=== PATIENT | female | born 2000 | race Caucasian/White ===

== ENCOUNTER 2023-11-03 08:45 | Emergency (ER) | payer OTHER, SELFPAY ==
[2023-11-03 08:48] VITALS: BP 111/67
--- NOTE | 2023-11-03 09:06 | ED.GENMED ---
History of Present Illness
<Maia Owen PA-C - Last Filed: 11/03/23 12:31>
General
Chief Complaint: Urinary Symptoms
Source: patient
Exam Limitations: none
Time Seen by Provider: 11/03/23 09:06
Nursing documentation reviewed up to this point in time: agreed with
History of Present Illness
History of Present Illness:
This is a 22 y/o female no past medical history presenting emergency department today with concerns of urinary burning, frequency, and urgency. Patient has had the symptoms for past 2 days. Patient reports that this feels like UTI she has had in
the past. However, last night she started develop bilateral flank pain, hematuria and says she is never had that with a UTI before and so she decided to report to emergency department for further evaluation. Patient has had no nausea or vomiting,
has had no fevers or chills. Patient denies any urinary incontinence. Patient denies any sick contacts. Patient denies any chance of STDs, STIs. Patient denies any changes to her appetite, notes she has been eating and drinking as normal.
Past History
<Maia Owen PA-C - Last Filed: 11/03/23 12:31>
Social History
Tobacco: Non-smoker
Alcohol: None
Drug: None
Review of Systems
<Maia Owen PA-C - Last Filed: 11/03/23 12:31>
Review of Systems
All Other Systems: ROS reviewed and negative except as documented in HPI and ROS
Phy Exam
<Maia Owen PA-C - Last Filed: 11/03/23 12:31>
Physical Exam
Physical Exam:
General: Patient is well appearing and in no acute distress; non-toxic
Skin: Warm and dry, no rashes or lesions
Head: Normocephalic, atraumatic
Eyes: Sclera non-icteric. EOMs intact.
Cardiac: Regular rate and rhythm, no murmurs
Peripheral Vascular: No lower extremity swelling or edema.
Pulm: Normal respiratory effort, no wheezes, rales, rhonchi
Abdomen: Positive CVA tenderness bilaterally. Mild lower abdominal tenderness bilaterally with no guarding, no rebound tenderness. No palpable masses.
Neuro: CN II-XII intact, no focal neurologic deficits.
Psychiatric: Appropriate mood and affect.
Course
<Maia Owen PA-C - Last Filed: 11/03/23 12:31>
Orders/Labs/Results
Orders:
Orders
11/03/23 08:57
Urinalysis Reflex To Culture Urgent
Date Specimen was Collected: 11/03/23
Time Specimen was Collected: 08:52
Urine Microscopic Reflex Cult Urgent
Urine Culture Urgent
JIM Source: U
Specimen Description:
Date Specimen was Collected: 11/03/23
Time Specimen was Collected: 08:52
11/03/23 09:21
Test Result ONCE
11/03/23 09:22
Ibuprofen [Motrin] 400 mg PO NOW STA
11/03/23 09:25
US Kidneys and US Bladder [US Renal With Bladder] Urgent
Comment:
Reason For Exam: bilateral flank pain
11/03/23 09:42
Test Result ONCE
11/03/23 09:45
Complete Blood Count/With Diff Urgent
Comprehensive Metabolic Panel Urgent
HCG, Serum Qualitative Screen Urgent
11/03/23 11:56
Sulfamethox./Trimethoprim Ds [Bactrim Ds 800 mg/160 mg] 1 tablet PO NOW STA
11/03/23 12:05
CefTRIAXone [Rocephin] 1,000 mg IV NOW STA
11/03/23 12:08
Cefdinir [Omnicef] 300 mg PO NOW STA
Abnormal Lab Results
11/03/23 11/03/23
08:57 09:45
RBC 4.13 L 10^6/uL
(4.20-5.40)
Hct 36.1 L %
(37.0-47.0)
MPV 10.8 H fL
(7.4-10.4)
Absolute Monos (auto) 0.7 H 10^3/uL
(0.1-0.6)
Lymphocytes % 20.4 L %
(20.5-51.1)
Monocytes % 9.8 H %
(1.7-9.3)
Ur Occult Blood Reflex 3+ A
(Negative)
Leukocyte Esterase Rfl 2+ A
(Negative)
Urine RBC >100 A /HPF
(0-2)
Urine WBC (Reflex) 70-80 A /HPF
(0-5)
Urine Bacteria (Reflex) Few A
(Negative)
Urine Albumin (Reflex) 3+ A
(Neg - Trace)
11/03/23 09:45
11/03/23 09:45
Vital Signs
Initial and Last Documented VS:
Initial Vital Signs
Temp Pulse Resp BP Pulse Ox
98.1 F 105 18 111/67 96
11/03/23 08:48 11/03/23 08:48 11/03/23 08:48 11/03/23 08:48 11/03/23 08:48
Last Documented Vital Signs
Temp Pulse Resp BP Pulse Ox
98.1 F 105 18 101/70 96
11/03/23 08:48 11/03/23 08:48 11/03/23 12:10 11/03/23 12:10 11/03/23 08:48
<Jass Martin, DO - Last Filed: 11/03/23 09:53>
Orders/Labs/Results
Orders:
Orders
11/03/23 08:57
Urinalysis Reflex To Culture Urgent
Date Specimen was Collected: 11/03/23
Time Specimen was Collected: 08:52
Urine Microscopic Reflex Cult Urgent
Urine Culture Urgent
JIM Source: U
Specimen Description:
Date Specimen was Collected: 11/03/23
Time Specimen was Collected: 08:52
11/03/23 09:21
Test Result ONCE
11/03/23 09:22
Ibuprofen [Motrin] 400 mg PO NOW STA
11/03/23 09:25
US Kidneys and US Bladder [US Renal With Bladder] Urgent
Comment:
Reason For Exam: bilateral flank pain
11/03/23 09:42
Test Result ONCE
11/03/23 09:45
Complete Blood Count/With Diff Urgent
Comprehensive Metabolic Panel Urgent
HCG, Serum Qualitative Screen Urgent
11/03/23 11:56
Sulfamethox./Trimethoprim Ds [Bactrim Ds 800 mg/160 mg] 1 tablet PO NOW STA
11/03/23 12:05
CefTRIAXone [Rocephin] 1,000 mg IV NOW STA
11/03/23 12:08
Cefdinir [Omnicef] 300 mg PO NOW STA
Abnormal Lab Results
11/03/23 11/03/23
08:57 09:45
RBC 4.13 L 10^6/uL
(4.20-5.40)
Hct 36.1 L %
(37.0-47.0)
MPV 10.8 H fL
(7.4-10.4)
Absolute Monos (auto) 0.7 H 10^3/uL
(0.1-0.6)
Lymphocytes % 20.4 L %
(20.5-51.1)
Monocytes % 9.8 H %
(1.7-9.3)
Ur Occult Blood Reflex 3+ A
(Negative)
Leukocyte Esterase Rfl 2+ A
(Negative)
Urine RBC >100 A /HPF
(0-2)
Urine WBC (Reflex) 70-80 A /HPF
(0-5)
Urine Bacteria (Reflex) Few A
(Negative)
Urine Albumin (Reflex) 3+ A
(Neg - Trace)
11/03/23 09:45
11/03/23 09:45
Vital Signs
Initial and Last Documented VS:
Initial Vital Signs
Temp Pulse Resp BP Pulse Ox
98.1 F 105 18 111/67 96
11/03/23 08:48 11/03/23 08:48 11/03/23 08:48 11/03/23 08:48 11/03/23 08:48
Last Documented Vital Signs
Temp Pulse Resp BP Pulse Ox
98.1 F 105 18 101/70 96
11/03/23 08:48 11/03/23 08:48 11/03/23 12:10 11/03/23 12:10 11/03/23 08:48
Delmylt;Maia Owen PA-C - Last Filed: 11/03/23 12:31>
MDM/Problems Addressed
Differential Diagnosis Includes:
Differentials include acute cystitis, pyelonephritis, nephrolithiasis, hemorrhagic cystitis, interstitial cystitis, loin pain hematuria syndrome
MDM/Problems Addressed:
Flank pain, UTI symptoms:
22-year-old female presents emergency department with concerns of UTI symptoms with abrupt onset of flank pain and hematuria that started last night. Patient is had about nausea or vomiting, fevers or chills. Will check lab work, test,
urinalysis. Will obtain ultrasound to assess for hydronephrosis. Will give ibuprofen for pain and reassess.
10: 26�cbc reviewed, no leukocytosis, test negative.
CMP unremarkable. Urinalysis concerning for UTI. Renal ultrasound negative for hydro. Based on symptoms, positive urinalysis, and flank pain, will treat for Eduardo. Patient given prescription for cefdinir and given 1 dose here in the emergency
department. Return precautions discussed, patient expressed understanding, patient stable for discharge. Case reviewed with my attending Dr. Martin.
Chronic conditions affecting care:
N/A
Acute Exacerbation and/or Progression of Chronic Illness:
N/A
<Maia Owen PA-C - Last Filed: 11/03/23 12:31>
*Pulse Oximetry
Patient hypoxic: no
*Critical Care Note
Total Time (30-74mins, 75-104mins- exclusive of procedures): Not Applicable
Data Reviewed
Review of Other/Old Records Reveals: Records (Reviewed ER physician documentation from 11/28/2017, seen for vasovagal syncope)
Source: patient and records
<Maia Owen PA-C - Last Filed: 11/03/23 12:31>
Patient Management
Social determinants of health affecting care: Strong social support
Escalation/DeEscalation of care consider admission/obs:
Admit not indicated, patient stable for discharge
ED Attending Note
<Maia Owen PA-C - Last Filed: 11/03/23 12:31>
-
Portions of this chart may have been created with voice recognition software.� Occasional wrong word or��sound alike� substitutions may have occurred due to the inherent limitations of voice recognition software.
<Jass Martin DO - Last Filed: 11/03/23 09:53>
ED Attending Note
Patient seen and examined by attending physician: Yes
I performed the substantive portion of visit, reviewed & personally made and approve the management plan that is documented in note by myself or DANAY.: Yes
ED Attending Note:
seen with Pa, agree with a/p
non toxic female
gu symptoms, hematuria
Discharge Plan
Departure
Patient Disposition: Home (Routine Discharge)
Date of Disposition: 11/03/23
Time of Disposition: 12:10
Patient with high blood pressure during this ER visit?: No
Condition: Good
Discharge Problem:
Pyelonephritis
Instructions: Blood in the Urine (Hematuria), Adult (DC), Urinary Tract Infection, Adult ED
Prescriptions:
New
cefdinir 300 mg capsule
300 mg PO BID 10 Days Qty: 20 0RF
No Action
No Meds [No Current Medications]
0
acetaminophen-codeine 10 ML solution
5 ml PO Q4HPRN PRN (Reason: abd pain) Qty: 100 0RF
Referrals:
NONE,* [Family Provider] -
Activity Restrictions/Additional Instructions:
Please return to emergency department should you develop fevers or chills, acute worsening of your pain, nausea or vomiting, chest pain, shortness of breath, any other signs or symptoms concerning to you.
You received 1 dose of cefdinir today. Please take the next dose in the evening. Tomorrow, you can continue taking cefdinir twice daily for remaining 9 days.
Please follow-up with your primary care provider for reassessment in a week.
Interventions
Interventions:
*Risk Screen - Suicide Last Done: 11/03/23 09:45
*General Assessment Last Done: 11/03/23 09:45
*Neglect/Abuse Screening Last Done: 11/03/23 09:45
ED- Fall Risk Assessment Last Done: 11/03/23 12:10
*ED COVID-19 Vaccine History Last Done: 11/03/23 09:45
*Nursing Disposition Last Done: 11/03/23 12:26
ED-Female Genitourinary Assessment Last Done: 11/03/23 09:45
Discharge Date and Time
Discharge Date/Time: 11/03/23 12:27
Print Language: MALAGASY
[2023-11-03 09:18] LABS: Urine Albumin 3+ (Neg - Trace); Urine Bilirubin Negative (Negative); Urine Character Very Cloudy (Clear); Urine Color Red; Urine Glucose Negative (Negative); Urine Ketone Negative (Negative); Urine Leukocyte 2+ (Negative); Urine Nitrite Negative (Negative); Urine Occult Blood 3+ (Negative); Urine Urobilinogen Negative (Neg - 1+)
[2023-11-03] MEDS: MOTRIN 400 MG PO (09:43)
[2023-11-03 09:59] LABS: Urine Red Blood Cell >100 /HPF (0-2); Urine White Cell 70-80 /HPF (0-5)
[2023-11-03 10:00] LABS: Urine Bacteria Few (Negative)
[2023-11-03 10:04] LABS: % Eosinophils 0.6 % (0-6); % Immature Granulocytes 0.4 % (0-0.5); % Lymphocytes 20.4 % (20.5-51.1); % Monocytes 9.8 % (1.7-9.3); % Neutrophils 67.8 % (42.2-75.2); Absolute Basophils 0.1 10^3/uL (0-0.2); Absolute Lymphocytes 1.4 10^3/uL (1.2-3.4); Absolute Monocytes 0.7 10^3/uL (0.1-0.6); Absolute Neutrophils 4.8 10^3/uL (1.4-6.5); Hematocrit 36.1 % (37.0-47.0); Hemoglobin 12.6 g/dL (12.0-16.0); Mean Corp Hgb Conc. 34.9 g/dL (33.0-37.0); Mean Corpuscular Hgb 30.5 pg (27.0-31.0); Mean Corpuscular Volume 87.4 fL (81.0-99.0); Mean Platelet Volume 10.8 fL (7.4-10.4); Nucleated Red Blood Cells % 0 %; Platelet Count 238 10^3/uL (130-400); Red Blood Cell Count 4.13 10^6/uL (4.20-5.40); Red Cell Dist. Width 12.8 % (11.5-14.5); White Blood Cell Count 7.1 10^3/uL (4.8-10.8)
[2023-11-03 10:25] LABS: HCG, Serum Qualitative Screen Negative
[2023-11-03 10:40] LABS: ALT (SGPT) 16 U/L (0-35); AST (SGOT) 25 U/L (14-36); Albumin 4.4 g/dl (3.5-5.0); Alkaline Phosphatase 62 U/L (38-126); Blood Urea Nitrogen 10 mg/dl (7-17); Calcium 9.5 mg/dl (8.4-10.2); Carbon Dioxide 25 mmol/L (22-30); Chloride 104 mmol/L (98-107); Glucose 86 mg/dl (70-99); Potassium 4.3 mmol/L (3.5-5.1); Sodium 141 mmol/L (135-145); Total Bilirubin 0.5 mg/dl (0.2-1.3); Total Protein 6.6 g/dl (6.3-8.2); eGFR > 60.00
[2023-11-03 12:10] VITALS: BP 101/70
[2023-11-03] MEDS: OMNICEF 300 MG PO (12:15)
== END 2023-11-03 12:27 | disposition home or self-care (01) ==
LOC: EMR 08:45
PROVIDERS: Physician Assistant; EMERGENCY PHYSICIAN Emergency Medicine
DX: N12 Tubulo-interstitial nephritis, not specified as acute or chronic (principal); Z87.440 Personal history of urinary (tract) infections
CPT/HCPCS: 99284; 76770; 80053; 81003; 81015; 84703; 85025; 87077; 87086; 87186